=== PATIENT | male | born 1990 | race Caucasian/White ===

== ENCOUNTER 2018-07-26 10:06 | Emergency (ER) | END 2018-07-26 11:22 | disposition home or self-care (01) ==

== ENCOUNTER 2019-01-20 21:42 | Emergency (ER) | payer MEDICAID ==
[~2019-01-20] VITALS: Wt 105.7 kg
[~2019-01-20 21:42] MED LIST: CYCL10TA7 PO; NAPR-985 PO
[2019-01-21] MEDS ORDERED: ONDANSETRON (1 MG/1.25 ML PO SYG) PO STA (02:28)
--- NOTE | 2019-01-21 02:28 | ERD ---
ER Documentation Chief Complaint Chief Complaint R FOOT SWELLING/ PAIN X'S 3 DAYS HPI This is a 28-year-old male presents emergency department with complaints of right distal foot pain that started 4 days ago and got worse today. Denies headache, head injury, loss of consciousness, dizziness, neck pain, neck stiffness, throat pain, difficulty swallowing, difficulty breathing lying flat, shoulder pain, chest pain, back pain, abdominal pain, nausea, vomiting, constipation, diarrhea, urinary symptoms, loss of bowel and bladder control, trauma, injury, falls, numbness or tingling sensation, calf pain, recent travel, recent major surgery in the last 3 weeks, calf pain, recent long travel, recent exposure to any illness, recent antibiotic use in the last 3 months, fever, chills, seizures. Past medical history: Surgical history: Social: Denies smoking, use of alcoholic beverages, use of illegal drugs. ROS All systems reviewed and are negative except as per history of present illness. Medications Home Meds Active Scripts Tramadol HCl (Tramadol HCl) 50 Mg Tablet, 50 MG PO Q4 PRN for PAIN, #4 TAB Prov:PASILABANMELISSA 01/21/19 Naproxen* (Naprosyn*) 500 Mg Tablet, 500 MG PO BID PRN for PAIN AND/OR INFLAMMATION, #30 TAB Prov:CONSTANCEILAMELISSA SMART F 01/21/19 Allopurinol* (Allopurinol*) 100 Mg Tablet, 100 MG PO DAILY, #30 TAB Prov:PASILAMELISSA SMART F 01/21/19 Cephalexin* (Keflex*) 500 Mg Capsule, 500 MG PO TID for 7 Days, CAP Prov:PASILABANMELISSA F 01/21/19 Cyclobenzaprine Hcl* (Cyclobenzaprine Hcl*) 10 Mg Tablet, 10 MG PO TID, #24 TAB Prov:JOSELITO DASH PA-C 07/26/18 Naproxen* (Naprosyn*) 500 Mg Tablet, 500 MG PO BID PRN for PAIN AND/OR INFLAMMATION, #30 TAB Prov:JOSELITO DASH PA-C 07/26/18 Allergies Allergies: Coded Allergies: No Known Allergy (Unverified , 07/26/18) PMhx/Soc Medical and Surgical Hx: pt denies Medical Hx, pt denies Surgical Hx Hx Alcohol Use: No Hx Substance Use: No Hx Tobacco Use: No Smoking Status: Never smoker Physical Exam Vitals Physical Exam Const: No acute distress Head: Atraumatic Eyes: Normal Conjunctiva ENT: Normal External Ears, Nose and Mouth. Neck: Full range of motion. No meningismus. Resp: Clear to auscultation bilaterally Cardio: Regular rate and rhythm, no murmurs Abd: Soft, non tender, non distended. Normal bowel sounds Skin: No petechiae or rashes Back: No midline or flank tenderness Ext: No cyanosis. Right foot: Phalanx of the right great toe has swelling and tenderness to palpation but has good and full range of motion. Low suspicion of septic joint. Right pedal pulse is within normal limits. Capillary refills to right lower extremity are less than 2 seconds. There is right calf tenderness to palpation. Right knee is unremarkable. Left lower extremity is unremarkable. No neurovascular deficit. Ambulatory with steady gait. Neur: Awake and alert. No neurological deficits. Psych: Normal Mood and Affect Results 24 hrs Laboratory Tests Test 01/21/19 03:17 White Blood Count 10.0 10^3/ul Red Blood Count 4.91 10^6/ul Hemoglobin 14.5 g/dl Hematocrit 44.0 % Mean Corpuscular Volume 89.6 fl Mean Corpuscular Hemoglobin 29.5 pg Mean Corpuscular Hemoglobin Concent 33.0 g/dl Red Cell Distribution Width 12.5 % Platelet Count 322 10^3/UL Mean Platelet Volume 10.0 fl Immature Granulocytes % 0.500 % Neutrophils % 67.3 % Lymphocytes % 22.8 % Monocytes % 8.3 % Eosinophils % 0.5 % Basophils % 0.6 % Nucleated Red Blood Cells % 0.0 /100WBC Immature Granulocytes # 0.050 10^3/ul Neutrophils # 6.7 10^3/ul Lymphocytes # 2.3 10^3/ul Monocytes # 0.8 10^3/ul Eosinophils # 0.1 10^3/ul Basophils # 0.1 10^3/ul Nucleated Red Blood Cells # 0.0 10^3/ul Erythrocyte Sedimentation Rate 25 mm/Hr Sodium Level 143 mmol/L Potassium Level 5.6 mmol/L Chloride Level 106 mmol/L Carbon Dioxide Level 28 mmol/L Anion Gap 9 Blood Urea Nitrogen 15 mg/dl Creatinine 1.00 mg/dl Est Glomerular Filtrat Rate mL/min > 60 mL/min Glucose Level 102 mg/dl Uric Acid 9.0 mg/dl Calcium Level 10.3 mg/dl Total Bilirubin 0.5 mg/dl Direct Bilirubin 0.00 mg/dl Indirect Bilirubin 0.5 mg/dl Aspartate Amino Transf (AST/SGOT) 48 IU/L Alanine Aminotransferase (ALT/SGPT) 95 IU/L Alkaline Phosphatase 82 IU/L C-Reactive Protein 0.9 mg/dl Total Protein 8.4 g/dl Albumin 4.8 g/dl Globulin 3.60 g/dl Albumin/Globulin Ratio 1.33 Current Medications Medications Dose Sig/Romulo Start Time Status Last (Trade) Ordered Route PRN Stop Time Admin Dose Reason Admin Ondansetron 1 mg ONCE STAT 01/21/19 DC HCl (Zofran PO 02:28 (Ped)) 01/21/19 02:33 Morphine 4 mg ONCE STAT 01/21/19 DC 01/21/19 Sulfate IM 02:58 03:15 (morphine) 01/21/19 03:00 Colchicine 1.2 mg ONCE ONCE 01/21/19 DC 01/21/19 (Colchicine) PO 03:00 03:14 01/21/19 03:01 Colchicine 0.6 mg ONCE ONCE 01/21/19 DC 01/21/19 (Colchicine) PO 03:00 04:20 01/21/19 03:01 Procedures/MDM Diagnostic tests: Elevated ESR at 25. White count is not elevated. Uric acid is 9.0.(elevated). X-ray of the right foot: Soft tissue swelling. No underlying bony abnormality. X-ray of the right ankle: Soft tissue swelling. No underlying fracture or dislocation. Ultrasound of right lower extremity: No sonographic evidence for deep vein thrombosis. Treatment: Morphine IM. Colchicine. Dexamethasone. Re-evaluation: Denies lower extremity pain. Right great toe/toes has good and full range of motion with very low suspicion for septic joint. Right pedal pulses within normal limits. Right calf is no tenderness. Symmetrical knees. Left lower extremity is unremarkable. Capillary refills to bilateral lower extremities are less than 2 seconds. No neurovascular deficit. Ambulatory with steady gait. Stated that he feels much better at this time and that he is ready to go home. Differential diagnosis I have low suspicion for DVT, deep space infection, septic joint, Lisfranc fracture, compartment syndrome. Final diagnosis: Gout. Gout attack. Patient is strongly insistent antibiotic. Prescription: Keflex. Motrin. Follow-up with PCP in the next 24-48 hours. Come back here in the emergency department for any new symptoms or any worsening symptoms. All questions and concerns were answered. Patient and family members verbalized understanding and agreed with plan of care. Hemodynamically stable on discharge. Departure Diagnosis: Primary Impression: Gout Additional Impression: Gout attack Condition: Stable Additional Instructions: Follow-up with PCP in the next 24-48 hours. Come back here in the emergency department for any new symptoms or any worsening symptoms. MELISSA ROSALES Jan 21, 2019 02:28
[2019-01-21] MEDS ORDERED: morphine 4 MG/ML VIAL IM STA (02:58)
[2019-01-21] MEDS ORDERED: COLCHICINE 0.6 MG TAB PO ONE ×2 (03:00)
[2019-01-21] MEDS ORDERED: CEPH-443 PO (06:22)
[2019-01-21] MEDS ORDERED: ALLO100T PO (06:23)
[2019-01-21] MEDS ORDERED: TRAM50TA2 PO (06:23)
[2019-01-21] MEDS ORDERED: NAPR-985 PO (06:23)
[2019-01-21 06:43] VITALS: BP 139/71; PULSE 71; RESP 18
== END 2019-01-21 06:44 | disposition home or self-care (01) ==
LOC: FTE 21:42
DX: M10.9 Gout, unspecified (principal)
CPT/HCPCS: 36415; 73610; 73630; 80053; 84560; 85025; 85651; 86140; 93971; 96372; J2270; Z7502; Z7610